=== PATIENT | female | born 1995 | race Caucasian/White ===

== ENCOUNTER 2018-08-26 08:40 | Outpatient (CLI) | payer OTHER ==
[2018-08-26 09:52] LABS: RUPTURE FETAL MEMBRANES NEGATIVE (NEGATIVE)
== END 2018-08-26 10:35 | disposition home or self-care (01) ==
LOC: OBT 08:40 → L-D 08:40 → OBT 10:35
DX: O60.02 Preterm labor without delivery, second trimester (principal); Z3A.21 21 weeks gestation of pregnancy
CPT/HCPCS: 76815; 76817; 84112

== ENCOUNTER 2018-11-29 13:58 | Emergency (ER) | payer OTHER | END 2018-11-29 15:39 | disposition home or self-care (01) | LOC: FTE 15:39 | DX: O99.89 Other specified diseases and conditions complicating pregnancy, childbirth and the puerperium (principal); M25.531 Pain in right wrist; Z3A.35 35 weeks gestation of pregnancy | CPT/HCPCS: 29125; 99282-25 ==

== ENCOUNTER 2018-12-31 00:35 | Inpatient (IN) | payer OTHER ==
[2018-12-31] MEDS ORDERED: LACTATED RINGER'S 1,000 ML IV (00:43)
[2018-12-31] MEDS ORDERED: MISOPROSTOL 200 MCG TAB PR (01:00)
[2018-12-31] MEDS ORDERED: BUTORPHANOL 2 MG INJ IV (01:00)
[2018-12-31] MEDS ORDERED: METHYLERGONOVINE 0.2 MG INJ IM (01:00)
[2018-12-31] MEDS ORDERED: LIDOCAINE 1% (MPF) 30 ML INJ INJ (01:00)
[2018-12-31] MEDS ORDERED: CARBOPROST 250 MCG INJ IM (01:00)
[2018-12-31] MEDS ORDERED: OXYTOCIN 30 UNITS/LR 500 ML IV (01:00)
[2018-12-31] MEDS: LACTATED RINGER'S 1,000 ML IV ×3 (01:14→19:28)
[2018-12-31 01:22] LABS: ADD MAN DIFF? NO
[2018-12-31 01:30] LABS: BASOPHILS % 0.2 % (0.0-2.0); EOSINOPHILS # 0.1 10^3/ul (0.0-0.5); EOSINOPHILS % 0.5 % (0.0-7.0); HEMATOCRIT 35.2 % (37.0-47.0); HEMOGLOBIN 11.2 g/dl (12.0-16.0); LYMPHOCYTES # 2.2 10^3/ul (0.8-2.9); LYMPHOCYTES % 22.3 % (15.0-51.0); MEAN CORPUSCULAR HEMOGLOBIN 27.5 pg (29.0-33.0); MEAN CORPUSCULAR HGB CONC 31.8 g/dl (32.0-37.0); MEAN CORPUSCULAR VOLUME 86.3 fl (82.0-101.0); MEAN PLATELET VOLUME 9.9 fl (7.4-10.4); MONOCYTE # 0.8 10^3/ul (0.3-0.9); MONOCYTES % 7.9 % (0.0-11.0); NEUTROPHIL # 6.9 10^3/ul (1.6-7.5); NEUTROPHILS % 68.4 % (39.0-77.0); PLATELET COUNT 382 10^3/UL (140-415); RED BLOOD COUNT 4.08 10^6/ul (4.20-5.40); RED CELL DISTRIBUTION WIDTH 13.2 % (11.5-14.5)
[2018-12-31 01:49] LABS: INR 0.87; PROTIME 11.9 Sec (11.9-14.9); PT RATIO 0.9
[2018-12-31 01:50] LABS: PARTIAL THROMBOPLASTIN TIME 27.3 Sec (23.0-35.0)
[2018-12-31] MEDS: VANCOMYCIN 1 GM (PMX) 250 ML IVPB ×2 (02:10→14:31)
[2018-12-31 03:05] LABS: HEPATITIS B SURFACE ANTIGEN NEGATIVE (NEGATIVE)
[2018-12-31] MEDS: OXYTOCIN 30 UNITS/LR 500 ML IV (14:32)
[2018-12-31 18:24] LABS: RAPID PLASMA REAGIN NONREACTIVE (NR)
[2019-01-01] MEDS: LACTATED RINGER'S 1,000 ML IV (00:43)
[2019-01-01] MEDS: OXYTOCIN 30 UNITS/LR 500 ML IV ×3 (01:51→05:39)
[2019-01-01] MEDS: IBUPROFEN 600 MG TAB PO ×5 (02:18→23:35)
[2019-01-01] MEDS ORDERED: NACL 0.9% 3 ML SYG IV (03:00)
[2019-01-01] MEDS ORDERED: CARBOPROST 250 MCG INJ IM (03:00)
[2019-01-01] MEDS ORDERED: MISOPROSTOL 200 MCG TAB PR (03:00)
[2019-01-01] MEDS ORDERED: ONDANSETRON 4 MG INJ IV (03:00)
[2019-01-01] MEDS ORDERED: LANOLIN HPA 1 PKT TOP (03:00)
[2019-01-01] MEDS ORDERED: ACETAMINOPHEN 325 MG TAB PO (03:00)
[2019-01-01] MEDS ORDERED: DIPHENHYDRAMINE 25 MG CAP PO (03:00)
[2019-01-01] MEDS ORDERED: ZOLPIDEM 5 MG TAB PO (03:00)
[2019-01-01] MEDS ORDERED: OXYTOCIN 30 UNITS/LR 500 ML IV (03:00)
[2019-01-01] MEDS: WITCH HAZEL/GLYCERIN PAD PR (03:11)
[2019-01-01] MEDS: HYDROCODONE/APAP (5/325) TAB PO (03:11)
[2019-01-01 04:02] LABS: HEMATOCRIT 34.1 % (37.0-47.0); HEMOGLOBIN 10.9 g/dl (12.0-16.0)
[2019-01-01 04:03] LABS: CREATININE 0.49 mg/dl (0.44-1.00)
[2019-01-01 04:03] LABS: BLOOD UREA NITROGEN 6 mg/dl (7-20)
[2019-01-01] MEDS: FERROUS SULFATE (EC) 325 MG TAB PO (09:16)
[2019-01-01] MEDS: SENNA/DOCUSATE NA (8.6MG/50MG) TAB PO ×2 (09:17→19:43)
[2019-01-01] MEDS: ACETAMINOPHEN 325 MG TAB PO (19:42)
[2019-01-02] MEDS: IBUPROFEN 600 MG TAB PO ×4 (06:12→23:32)
[2019-01-02] MEDS: SENNA/DOCUSATE NA (8.6MG/50MG) TAB PO ×2 (09:52→21:00)
[2019-01-02] MEDS: FERROUS SULFATE (EC) 325 MG TAB PO (09:52)
[2019-01-03] MEDS: IBUPROFEN 600 MG TAB PO ×2 (06:00→13:22)
[2019-01-03] MEDS: MEASLES,MUMPS,RUBELLA VACCINE INJ SC* (09:00)
[2019-01-03] MEDS: DIPHTH/TET/ACEL PERTUSS (ADULT) 0.5 ML VIAL IM* (09:00)
[2019-01-03] MEDS: SENNA/DOCUSATE NA (8.6MG/50MG) TAB PO (09:00)
[2019-01-03] MEDS: VARICELLA VACCINE LIVE/PF 1,350 UNIT/0.5 ML ML SC* (09:00)
[2019-01-03] MEDS: FERROUS SULFATE (EC) 325 MG TAB PO (10:09)
[2019-01-03] MEDS: WITCH HAZEL/GLYCERIN PAD PR (13:51)
== END 2019-01-03 15:38 | disposition home or self-care (01) | DRG 807 ==
LOC: OBT 00:35 → L-D 00:35 → OBT 01:20 → L-D 01:20 → PP1 01-01 14:55
PROVIDERS: Obstetrics & Gynecology
PROC: 4A1HXCZ Monitoring of Products of Conception, Cardiac Rate, External Approach (ICD-10-PCS; 2018-12-31)
PROC: 10E0XZZ Delivery of Products of Conception, External Approach (ICD-10-PCS; principal; 2019-01-01)
DX: O99.824 Streptococcus B carrier state complicating childbirth (principal); Z37.0 Single live birth; O70.0 First degree perineal laceration during delivery; Z3A.39 39 weeks gestation of pregnancy
CPT/HCPCS: 82565; 84520; 85014; 85018; 85025; 85610; 85730; 86592; 86850; 86900; 86901; 87340; 90716